=== PATIENT | male | born 1945 | race Caucasian/White ===

== ENCOUNTER 2023-11-16 09:08 | Outpatient (RCR) | payer MEDICARE, SELFPAY | END 2023-12-31 23:59 | disposition home or self-care (01) | LOC: CCIC 09:08 | PROVIDERS: PCP Family Medicine; Visit Provider Internal Medicine Hematology & Oncology | DX: C61 Malignant neoplasm of prostate (principal); C79.51 Secondary malignant neoplasm of bone | CPT/HCPCS: 99202; 99204 ==